=== PATIENT | male | born 1960 | race Caucasian/White ===

== ENCOUNTER 2017-08-19 08:38 | Day surgery (SDC) | payer BC ==
--- NOTE | 2017-07-29 07:42 | HP ---
CC: Dr. Cuevas * HISTORY AND PHYSICAL: DATE OF PLANNED ADMISSION AND SURGERY: 08/19/17 HISTORY OF PRESENT ILLNESS: Mr. Hung is a 57-year-old white male, who is admitted with suspicious bladder lesion for cystoscopy and bladder biopsies. Mr. Hung was diagnosed in 1998 with a medium grade, non invasive, transitional cell carcinoma of the urinary bladder. He was treated with resection followed by a full course of intravesical BCG. He has been doing very well and has been having yearly cystoscopies. Over the last several years , there was a slight irregularity noted in the mucosa in the right trigone, which was felt to be secondary to the BCG reaction. On his recent cystoscopy, there was prominence of the irregular mucosa involving the right trigone and surrounding the right ureteral orifice. His urine cytology was negative showing only rare atypical degenerated cells. His renal ultrasound was normal. His urinalysis was negative. Because of the appearance of the mucosa of the right trigone and the past history of a bladder tumor, he is admitted for bladder biopsies to rule out any recurrent disease. PAST MEDICAL HISTORY AND SYSTEM REVIEW: He is in excellent health. His only problem is asthma, for which he takes Singulair 10 mg daily. He also is on Nasonex as needed. He has GERD, on omeprazole. He denies any allergies to medications. PHYSICAL EXAMINATION GENERAL: Pleasant, healthy, moderately overweight white male. VITAL SIGNS: Blood pressure 130/80, pulse 70. LUNGS: Normal. HEART: Normal. ABDOMEN: Normal. He has no CVA tenderness. EXTERNAL GENITALIA: Normal. RECTAL: Showed a non-enlarged and non-suspicious prostate. IMPRESSION: Past history of bladder tumor with irregularity of the mucosa of the right trigone on recent cystoscopy. PLAN: Cystoscopy and bladder biopsies. I discussed the above plans with the patient. All his questions were answered. [id number]/[facility] #: [id number] TERESO
[~2017-08-19 08:38] MED LIST: Buffered Lidocaine 0.9% SYRIN* 5 ML/SYR SYRINGE INTRADERM ONE; Buffered Lidocaine 0.9% SYRIN* 5 ML/SYR SYRINGE ONE; cefTRIAXone(*) 2 GM ADDV.VIAL IVPB ONE
[2017-08-19] MEDS ORDERED: DiMENhydriNATE IV* 50 MG/ML VIAL IV PUSH PRN (09:53)
[2017-08-19] MEDS ORDERED: fentaNYL* 50 MCG/ML 2 ML VIAL (100 MCG VIAL) IV PRN (09:53)
[2017-08-19] MEDS ORDERED: Acetaminophen TAB* 325 MG PO PRN (09:53)
[2017-08-19] MEDS ORDERED: PROCHLORPERAZINE INJ 5 MG/ML 2 ML VIAL IV PRN (09:53)
[2017-08-19] MEDS ORDERED: Ondansetron INJ* 2 MG/ML VIAL IV PRN (09:53)
[2017-08-19] MEDS ORDERED: fentaNYL* 50 MCG/ML 2 ML VIAL (100 MCG VIAL) ONE ×2 (11:01→14:17)
[2017-08-19] MEDS ORDERED: Midazolam* 1 MG/ML 2 ML VIAL (2 MG) ONE ×3 (11:01→11:48)
[2017-08-19] MEDS ORDERED: Chloroprocaine 2%* 20 ML VIAL ONE (11:57)
[2017-08-19] MEDS ORDERED: Famotidine IV* 10 MG/ML 2 ML (20 mg) ONE (11:57)
[2017-08-19] MEDS ORDERED: diPHENhydraMINE IV* 50 MG/ML 1 ml VIAL (BENADRYL) ONE (11:57)
[2017-08-19] MEDS ORDERED: Propofol* 10 MG/ML 20 ML BTL IV PUSH ONE (11:58)
[2017-08-19] MEDS ORDERED: mitoMYcin PWD* 40 MG in Sterile Water for Inj* 40 ML IRRIGATION ONE (13:00)
[2017-08-19] MEDS ORDERED: Acetaminophen TAB* 325 MG ONE (14:17)
[2017-08-19 15:03] VITALS: BP 162/92
--- NOTE | 2017-08-20 07:25 | OP ---
CC: Dr. Cuevas OPERATIVE REPORT: DATE OF OPERATION: 08/19/17 DATE OF : 58 SURGEON: Dr. Helms. ANESTHESIA: Spinal. ANESTHESIOLOGIST: Zulma Ibarra MD PRE-OP DIAGNOSIS: Suspicious bladder lesions, right trigone. POST-OP DIAGNOSES: Pending pathology. OPERATIVE PROCEDURE: 1. Cystoscopy. 2. Excisional biopsies and fulguration of lesions of right trigone. INDICATIONS FOR PROCEDURE: Mr. 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 He has been followed periodically with cystoscopies. His rece nt office cystoscopy showed irregularity of the mucosa of the right trigone. There were no papillary lesions seen. No areas of carcinoma in situ were noted. Because of that finding, which was felt to be abnormal and to rule out any recurrent tumor, biopsies were advised and accepted. PATHOLOGY AT CYSTOSCOPY: The penile and bulbar urethrae looked normal. The prostatic urethra measur ed about 2.5 cm in length and there was minimal degree of obstruction by the prostate. Examination of the bladder showed an area of scarring lateral to the left ureteral orifice from the o riginal tumor excision. There was irregularity of the mucosa just lateral and distal to the left ureteral orifice. The orifi ce itself was not involved with the lesion. The examination of the rest of the bladder looked comple tely normal. There were no papillary lesions and no areas to suggest carcinoma in situ. DESCRIPTION OF PROCEDURE: After successful spinal anesthesia, the patient was placed in the lithotom y position and was prepped and draped for a cystoscopy. Cystoscopy was performed. The bladder was ca refully inspected and the above findings were noted. Using the rigid biopsy forceps, several biopsies were obtained from the right trigone, lateral and di stal to the right ureteral orifice. The orifice itself was intact. The sites of the biopsies were t hen thoroughly fulgurated with coagulation current achieving very good hemostasis. After a final inspection, which showed intact right orifice and good hemostasis, the resectoscope was removed and a size 16-Lao Bowers catheter was passed inside the bladder and the balloon inflated w ith 10 cc of water. The patient tolerated the procedure well and left the operating room in good condition. The plan is to give the patient 1 dose of intravesical mitomycin-C in the recovery room in case the l esion is malignant. [id number]/[facility] #: [id number]
== END 2017-08-19 15:21 | disposition home or self-care (01) ==
LOC: OR 08:38
PROVIDERS: ATTEND Urology
DX: N32.9 Bladder disorder, unspecified (principal); J45.909 Unspecified asthma, uncomplicated; K21.9 Gastro-esophageal reflux disease without esophagitis
CPT/HCPCS: 62323; 88305; A9270-GY; J0696; J1200; J2250; J2400; J2704; J3010; J9280